=== PATIENT | female | born 1930 | race Caucasian/White ===

== ENCOUNTER 2018-08-12 08:41 | Inpatient (IN) | payer MEDICARE, OTHER ==
[2018-08-12] MEDS: ALBUTEROL 0.5% (NEB) 2.5 MG/0.5 ML AMP INH (08:55)
[2018-08-12] MEDS: IPRATROPIUM (NEB) 0.5 MG/2.5 ML AMP INH (08:56)
[2018-08-12 09:44] LABS: ADD MAN DIFF? NO
[2018-08-12] MEDS: CEFEPIME 2GM/50 ML (PMX) 50 ML IVPB (09:44)
[2018-08-12] MEDS: METHYLPREDNISOLONE 125 MG INJ IV ×3 (09:45→22:23)
[2018-08-12] MEDS: SODIUM CHLORIDE 0.9% 1L BAG IV* (09:45)
[2018-08-12] MEDS: VANCOMYCIN 1 GM (PMX) 250 ML IVPB (09:45)
[2018-08-12 09:48] LABS: WHITE BLOOD COUNT 15.8 10^3/ul (4.8-10.8)
[2018-08-12 09:48] LABS: BASOPHIL # 0.1 10^3/ul (0.0-0.1); BASOPHILS % 0.4 % (0.0-2.0); EOSINOPHILS % 0.1 % (0.0-7.0); HEMATOCRIT 42.3 % (37.0-47.0); HEMOGLOBIN 13.4 g/dl (12.0-16.0); LYMPHOCYTES # 2.1 10^3/ul (0.8-2.9); LYMPHOCYTES % 13.1 % (15.0-51.0); MEAN CORPUSCULAR HEMOGLOBIN 29.8 pg (29.0-33.0); MEAN CORPUSCULAR HGB CONC 31.7 g/dl (32.0-37.0); MEAN CORPUSCULAR VOLUME 94.2 fl (82.0-101.0); MEAN PLATELET VOLUME 11.4 fl (7.4-10.4); MONOCYTES % 6.1 % (0.0-11.0); NEUTROPHIL # 12.5 10^3/ul (1.6-7.5); NEUTROPHILS % 79.3 % (39.0-77.0); PLATELET COUNT 277 10^3/UL (140-415); RED BLOOD COUNT 4.49 10^6/ul (4.20-5.40); RED CELL DISTRIBUTION WIDTH 13.7 % (11.5-14.5)
[2018-08-12 10:06] LABS: ALANINE AMINOTRANSFERASE 21 IU/L (13-69); ALBUMIN 3.8 g/dl (3.3-4.9); ALBUMIN/GLOBULIN RATIO 0.95; ALKALINE PHOSPHATASE 139 IU/L (42-121); AMYLASE 36 U/L (11-123); ANION GAP 4 (5-13); ASPARTATE AMINO TRANSFERASE 30 IU/L (15-46); BILIRUBIN,INDIRECT 0.4 mg/dl (0-1.1); BILIRUBIN,TOTAL 0.4 mg/dl (0.2-1.3); BLOOD UREA NITROGEN 16 mg/dl (7-20); CALCIUM 10.2 mg/dl (8.4-10.2); CARBON DIOXIDE 35 mmol/L (21-31); CHLORIDE 101 mmol/L (97-110); CREATININE 0.83 mg/dl (0.44-1.00); GLUCOSE 152 mg/dl (70-220); LIPASE 12 U/L (23-300); POTASSIUM 4.1 mmol/L (3.5-5.1); SODIUM 140 mmol/L (135-144); TOTAL PROTEIN 7.8 g/dl (6.1-8.1)
[2018-08-12 10:07] LABS: INR 0.98; PROTIME 13.1 Sec (11.9-14.9)
[2018-08-12 10:16] LABS: PARTIAL THROMBOPLASTIN TIME 29.1 Sec (23.0-35.0)
[2018-08-12 10:17] LABS: TROPONIN-I 0.031 ng/ml (0.000-0.120)
[2018-08-12] MEDS ORDERED: ACETAMINOPHEN 325 MG TAB PO (11:30)
[2018-08-12] MEDS ORDERED: ONDANSETRON 4 MG INJ IV ×2 (11:30→12:30)
[2018-08-12 11:56] LABS: ADD UMIC YES; UR ASCORBIC ACID 40 mg/dL (NEGATIVE); UR BACTERIA FEW /HPF (NONE SEEN); UR BILIRUBIN (Dip) NEGATIVE (NEGATIVE); UR BLOOD (Dip) NEGATIVE (NEGATIVE); UR CLARITY CLOUDY (CLEAR); UR COLOR AMBER (YELLOW); UR GLUCOSE (Dip) NEGATIVE (NEGATIVE); UR GRANULAR CAST FEW /HPF (NONE SEEN); UR HYALINE CAST FEW /HPF (NONE SEEN); UR KETONES (Dip) NEGATIVE (NEGATIVE); UR LEUKOCYTE ESTERASE (Dip) TRACE Leu/ul (NEGATIVE); UR MUCUS MANY /HPF (NONE SEEN); UR NITRITE (Dip) POSITIVE (NEGATIVE); UR RBC 3 /HPF (0-5); UR SPECIFIC GRAVITY (Dip) 1.026 (1.003-1.030); UR SQUAMOUS EPITHELIAL CELL FEW /HPF (FEW); UR TOTAL PROTEIN (Dip) 2+ mg/dl (NEGATIVE); UR UROBILINOGEN (Dip) 1+ mg/dL (NEGATIVE); UR WBC 61 /HPF (0-5)
[2018-08-12] MEDS ORDERED: NACL 0.9% 3 ML SYG IV (12:30)
[2018-08-12] MEDS: SOD CHLORIDE 0.9% 1,000 ML IV (13:09)
[2018-08-12] MEDS ORDERED: VANCOMYCIN IV PER PHARMACY XX (14:00)
[2018-08-12 15:08] LABS: LACTIC ACID 2.5 mmol/L (0.5-2.0)
[2018-08-12 15:18] LABS: B-TYPE NATRIURETIC PEPTIDE 4900 PG/ML (0-450)
[2018-08-12 15:27] LABS: HEMOGLOBIN A1C 5.2 % (0-5.9)
[2018-08-12 15:39] LABS: THYROID STIMULATING HORMONE 0.769 MIU/L (0.465-4.680)
[2018-08-12] MEDS: VANCOMYCIN 500 MG (PMX) 100 ML IVPB (16:14)
[2018-08-12 16:15] LABS: FREE T4 (FREE THYROXINE) 2.01 ng/dl (0.85-1.93)
[2018-08-12] MEDS: PIPER-TAZO 3.375 GM IV (PMX) 100 ML IVPB (17:38)
[2018-08-12] MEDS: ALBUTEROL/IPRATROPIUM (NEB) 3 ML AMP HHN (20:42)
[2018-08-12] MEDS: HALOPERIDOL 5 MG INJ IM ×2 (20:43→21:46)
[2018-08-12] MEDS: LORAZEPAM 2 MG INJ IV (21:46)
[2018-08-13] MEDS: PIPER-TAZO 3.375 GM IV (PMX) 100 ML IVPB ×2 (00:10→05:47)
[2018-08-13 05:21] LABS: ADD MAN DIFF? NO
[2018-08-13 05:22] LABS: WHITE BLOOD COUNT 13.2 10^3/ul (4.8-10.8)
[2018-08-13 05:22] LABS: BASOPHILS % 0.2 % (0.0-2.0); HEMOGLOBIN 11.4 g/dl (12.0-16.0); LYMPHOCYTES # 1.7 10^3/ul (0.8-2.9); LYMPHOCYTES % 12.8 % (15.0-51.0); MEAN CORPUSCULAR HEMOGLOBIN 29.7 pg (29.0-33.0); MEAN CORPUSCULAR HGB CONC 30.8 g/dl (32.0-37.0); MEAN CORPUSCULAR VOLUME 96.4 fl (82.0-101.0); MEAN PLATELET VOLUME 12.7 fl (7.4-10.4); MONOCYTE # 0.4 10^3/ul (0.3-0.9); MONOCYTES % 3.2 % (0.0-11.0); NEUTROPHIL # 10.9 10^3/ul (1.6-7.5); NEUTROPHILS % 82.4 % (39.0-77.0); PLATELET COUNT 202 10^3/UL (140-415); RED BLOOD COUNT 3.84 10^6/ul (4.20-5.40); RED CELL DISTRIBUTION WIDTH 14.1 % (11.5-14.5)
[2018-08-13 05:47] LABS: LACTIC ACID 1.5 mmol/L (0.5-2.0)
[2018-08-13] MEDS: SOD CHLORIDE 0.9% 1,000 ML IV (05:47)
[2018-08-13] MEDS: PANTOPRAZOLE 40 MG INJ IV (05:47)
[2018-08-13] MEDS: METHYLPREDNISOLONE 125 MG INJ IV ×3 (05:47→21:14)
[2018-08-13] MEDS: LEVOTHYROXINE 125 MCG TAB PO (05:48)
[2018-08-13 05:56] LABS: ALANINE AMINOTRANSFERASE 24 IU/L (13-69); ALBUMIN 3.1 g/dl (3.3-4.9); ALKALINE PHOSPHATASE 97 IU/L (42-121); ANION GAP 6 (5-13); ASPARTATE AMINO TRANSFERASE 28 IU/L (15-46); BILIRUBIN,INDIRECT 0.2 mg/dl (0-1.1); BILIRUBIN,TOTAL 0.2 mg/dl (0.2-1.3); BLOOD UREA NITROGEN 17 mg/dl (7-20); CARBON DIOXIDE 31 mmol/L (21-31); CHLORIDE 108 mmol/L (97-110); GLUCOSE 138 mg/dl (70-220); POTASSIUM 4.6 mmol/L (3.5-5.1); SODIUM 145 mmol/L (135-144); TOTAL PROTEIN 6.2 g/dl (6.1-8.1)
[2018-08-13 07:19] LABS: PHOSPHORUS 4.6 mg/dl (2.5-4.9)
[2018-08-13 07:19] LABS: MAGNESIUM 2.3 mg/dl (1.7-2.5)
[2018-08-13] MEDS: hydrALAzine 20 MG INJ IV (07:59)
[2018-08-13] MEDS: ASPIRIN (EC) 81 MG TAB PO (09:00)
[2018-08-13] MEDS: MULTIVITAMINS THERAPEUTIC TAB PO (09:00)
[2018-08-13] MEDS: ENOXAPARIN 40 MG/0.4 ML SYG SC (09:00)
[2018-08-13] MEDS: LORATADINE 10 MG TAB PO (09:00)
[2018-08-13] MEDS: ALBUTEROL/IPRATROPIUM (NEB) 3 ML AMP HHN ×3 (09:08→21:20)
[2018-08-13] MEDS: CEFTRIAXONE 1 GM/50 ML (PMX) 50 ML IVPB (11:22)
[2018-08-13] MEDS: AZITHROMYCIN 500MG/NS (PMX) 250 ML IVPB (12:35)
[2018-08-13] MEDS: OLANZAPINE 2.5 MG TAB PO (13:20)
[2018-08-13] MEDS ORDERED: VANCOMYCIN HCL 1.25 GM in SOD CHLORIDE 0.9% 250 ML IVPB (15:00)
[2018-08-14] MEDS: HALOPERIDOL 5 MG INJ IM (01:55)
[2018-08-14] MEDS: LORAZEPAM 2 MG INJ IV (01:56)
[2018-08-14] MEDS: ALBUTEROL/IPRATROPIUM (NEB) 3 ML AMP HHN ×4 (03:58→20:53)
[2018-08-14] MEDS: PANTOPRAZOLE 40 MG INJ IV (05:53)
[2018-08-14] MEDS: METHYLPREDNISOLONE 125 MG INJ IV (05:54)
[2018-08-14] MEDS: LEVOTHYROXINE 88 MCG TAB PO (05:55)
[2018-08-14] MEDS: LORATADINE 10 MG TAB PO (09:35)
[2018-08-14] MEDS: ASPIRIN (EC) 81 MG TAB PO (09:35)
[2018-08-14] MEDS: OLANZAPINE 2.5 MG TAB PO (09:36)
[2018-08-14] MEDS: ENOXAPARIN 40 MG/0.4 ML SYG SC (09:36)
[2018-08-14] MEDS: MULTIVITAMINS THERAPEUTIC TAB PO (09:36)
[2018-08-14 10:19] LABS: ADD MAN DIFF? NO
[2018-08-14 10:22] LABS: BASOPHIL # 0.1 10^3/ul (0.0-0.1); BASOPHILS % 0.5 % (0.0-2.0); HEMATOCRIT 37.4 % (37.0-47.0); HEMOGLOBIN 11.6 g/dl (12.0-16.0); LYMPHOCYTES # 1.1 10^3/ul (0.8-2.9); LYMPHOCYTES % 8.3 % (15.0-51.0); MEAN CORPUSCULAR HEMOGLOBIN 29.5 pg (29.0-33.0); MEAN CORPUSCULAR VOLUME 95.2 fl (82.0-101.0); MEAN PLATELET VOLUME 12.4 fl (7.4-10.4); MONOCYTE # 0.4 10^3/ul (0.3-0.9); MONOCYTES % 3.3 % (0.0-11.0); NEUTROPHIL # 11.2 10^3/ul (1.6-7.5); NEUTROPHILS % 83.2 % (39.0-77.0); PLATELET COUNT 213 10^3/UL (140-415); RED BLOOD COUNT 3.93 10^6/ul (4.20-5.40); RED CELL DISTRIBUTION WIDTH 14.2 % (11.5-14.5)
[2018-08-14 10:22] LABS: WHITE BLOOD COUNT 13.5 10^3/ul (4.8-10.8)
[2018-08-14 10:42] LABS: ALANINE AMINOTRANSFERASE 28 IU/L (13-69); ALBUMIN 3.2 g/dl (3.3-4.9); ALBUMIN/GLOBULIN RATIO 0.96; ALKALINE PHOSPHATASE 91 IU/L (42-121); ANION GAP 4 (5-13); ASPARTATE AMINO TRANSFERASE 29 IU/L (15-46); BLOOD UREA NITROGEN 30 mg/dl (7-20); CARBON DIOXIDE 29 mmol/L (21-31); CHLORIDE 112 mmol/L (97-110); CREATININE 0.93 mg/dl (0.44-1.00); GLUCOSE 137 mg/dl (70-220); POTASSIUM 4.2 mmol/L (3.5-5.1); SODIUM 145 mmol/L (135-144); TOTAL PROTEIN 6.5 g/dl (6.1-8.1)
[2018-08-14 10:43] LABS: MAGNESIUM 2.4 mg/dl (1.7-2.5)
[2018-08-14] MEDS: CEFTRIAXONE 1 GM/50 ML (PMX) 50 ML IVPB (11:35)
[2018-08-14] MEDS: DEXTROSE 5%-0.45% NACL 1,000 ML IV (11:35)
[2018-08-14] MEDS: AZITHROMYCIN 250 MG TAB PO (16:50)
[2018-08-14] MEDS: BENZONATATE 100 MG CAP PO (17:17)
[2018-08-14] MEDS: DOCUSATE SODIUM 100 MG CAP PO (20:10)
[2018-08-14] MEDS: QUETIAPINE 25 MG TAB PO (20:10)
[2018-08-15] MEDS: ALBUTEROL/IPRATROPIUM (NEB) 3 ML AMP HHN ×4 (00:45→21:06)
[2018-08-15] MEDS: BENZONATATE 100 MG CAP PO ×3 (01:55→21:12)
[2018-08-15 05:52] LABS: ADD MAN DIFF? NO
[2018-08-15 05:58] LABS: BASOPHIL # 0.1 10^3/ul (0.0-0.1); BASOPHILS % 0.5 % (0.0-2.0); EOSINOPHILS # 0.1 10^3/ul (0.0-0.5); EOSINOPHILS % 0.4 % (0.0-7.0); HEMATOCRIT 38.4 % (37.0-47.0); HEMOGLOBIN 12.4 g/dl (12.0-16.0); LYMPHOCYTES # 3.1 10^3/ul (0.8-2.9); LYMPHOCYTES % 19.9 % (15.0-51.0); MEAN CORPUSCULAR HEMOGLOBIN 30.5 pg (29.0-33.0); MEAN CORPUSCULAR HGB CONC 32.3 g/dl (32.0-37.0); MEAN CORPUSCULAR VOLUME 94.6 fl (82.0-101.0); MEAN PLATELET VOLUME 12.4 fl (7.4-10.4); MONOCYTES % 6.5 % (0.0-11.0); NEUTROPHIL # 11.1 10^3/ul (1.6-7.5); PLATELET COUNT 233 10^3/UL (140-415); RED BLOOD COUNT 4.06 10^6/ul (4.20-5.40); RED CELL DISTRIBUTION WIDTH 14.6 % (11.5-14.5)
[2018-08-15 05:58] LABS: WHITE BLOOD COUNT 15.8 10^3/ul (4.8-10.8)
[2018-08-15] MEDS: LEVOTHYROXINE 88 MCG TAB PO (06:04)
[2018-08-15] MEDS: PANTOPRAZOLE (EC) 40 MG TAB PO (06:05)
[2018-08-15 06:29] LABS: ANION GAP 7 (5-13); BLOOD UREA NITROGEN 29 mg/dl (7-20); CARBON DIOXIDE 31 mmol/L (21-31); CHLORIDE 110 mmol/L (97-110); CREATININE 0.89 mg/dl (0.44-1.00); GLUCOSE 85 mg/dl (70-220); MAGNESIUM 2.5 mg/dl (1.7-2.5); POTASSIUM 3.9 mmol/L (3.5-5.1); SODIUM 148 mmol/L (135-144); TROPONIN-I 0.041 ng/ml (0.000-0.120)
[2018-08-15] MEDS: predniSONE 20 MG TAB PO (09:10)
[2018-08-15] MEDS: MULTIVITAMINS THERAPEUTIC TAB PO (09:10)
[2018-08-15] MEDS: LORATADINE 10 MG TAB PO (09:10)
[2018-08-15] MEDS: AZITHROMYCIN 250 MG TAB PO (09:10)
[2018-08-15] MEDS: ASPIRIN (EC) 81 MG TAB PO (09:10)
[2018-08-15] MEDS: OLANZAPINE 2.5 MG TAB PO (09:11)
[2018-08-15] MEDS: ENOXAPARIN 40 MG/0.4 ML SYG SC (09:12)
[2018-08-15] MEDS: CEFTRIAXONE 1 GM/50 ML (PMX) 50 ML IVPB (12:09)
[2018-08-15] MEDS: ACETYLCYSTEINE 20% 4 ML VIAL NEB ×2 (14:00→21:06)
[2018-08-15] MEDS: DOCUSATE SODIUM 100 MG CAP PO (21:12)
[2018-08-16] MEDS: ALBUTEROL/IPRATROPIUM (NEB) 3 ML AMP HHN ×4 (02:02→20:18)
[2018-08-16] MEDS: ACETYLCYSTEINE 20% 4 ML VIAL NEB ×4 (02:02→20:18)
[2018-08-16] MEDS: QUETIAPINE 25 MG TAB PO (02:14)
[2018-08-16 05:25] LABS: ADD MAN DIFF? NO
[2018-08-16 05:33] LABS: BASOPHIL # 0.1 10^3/ul (0.0-0.1); BASOPHILS % 0.6 % (0.0-2.0); EOSINOPHILS # 0.2 10^3/ul (0.0-0.5); EOSINOPHILS % 1.5 % (0.0-7.0); HEMATOCRIT 41.5 % (37.0-47.0); HEMOGLOBIN 13.3 g/dl (12.0-16.0); LYMPHOCYTES # 3.7 10^3/ul (0.8-2.9); LYMPHOCYTES % 25.5 % (15.0-51.0); MEAN CORPUSCULAR HEMOGLOBIN 29.6 pg (29.0-33.0); MEAN CORPUSCULAR VOLUME 92.2 fl (82.0-101.0); MEAN PLATELET VOLUME 11.8 fl (7.4-10.4); MONOCYTE # 0.7 10^3/ul (0.3-0.9); MONOCYTES % 5.1 % (0.0-11.0); NEUTROPHIL # 9.3 10^3/ul (1.6-7.5); NEUTROPHILS % 64.5 % (39.0-77.0); PLATELET COUNT 229 10^3/UL (140-415); RED CELL DISTRIBUTION WIDTH 14.3 % (11.5-14.5)
[2018-08-16 05:33] LABS: WHITE BLOOD COUNT 14.3 10^3/ul (4.8-10.8)
[2018-08-16] MEDS: PANTOPRAZOLE (EC) 40 MG TAB PO (05:34)
[2018-08-16] MEDS: LEVOTHYROXINE 88 MCG TAB PO (05:34)
[2018-08-16 06:17] LABS: ANION GAP 8 (5-13); BLOOD UREA NITROGEN 20 mg/dl (7-20); CALCIUM 9.6 mg/dl (8.4-10.2); CARBON DIOXIDE 33 mmol/L (21-31); CHLORIDE 104 mmol/L (97-110); GLUCOSE 90 mg/dl (70-220); MAGNESIUM 2.2 mg/dl (1.7-2.5); PHOSPHORUS 1.9 mg/dl (2.5-4.9); POTASSIUM 3.6 mmol/L (3.5-5.1); SODIUM 145 mmol/L (135-144)
[2018-08-16] MEDS: LORATADINE 10 MG TAB PO (09:30)
[2018-08-16] MEDS: AZITHROMYCIN 250 MG TAB PO (09:30)
[2018-08-16] MEDS: MULTIVITAMINS THERAPEUTIC TAB PO (09:30)
[2018-08-16] MEDS: predniSONE 20 MG TAB PO (09:30)
[2018-08-16] MEDS: ASPIRIN (EC) 81 MG TAB PO (09:30)
[2018-08-16] MEDS: OLANZAPINE 2.5 MG TAB PO (09:31)
[2018-08-16] MEDS: ENOXAPARIN 40 MG/0.4 ML SYG SC (09:32)
[2018-08-16] MEDS: CEFTRIAXONE 1 GM/50 ML (PMX) 50 ML IVPB (11:10)
[2018-08-16] MEDS: BENZONATATE 100 MG CAP PO (20:38)
[2018-08-16] MEDS: DOCUSATE SODIUM 100 MG CAP PO (20:38)
[2018-08-17] MEDS: ALBUTEROL/IPRATROPIUM (NEB) 3 ML AMP HHN ×4 (00:54→23:49)
[2018-08-17] MEDS: ACETYLCYSTEINE 20% 4 ML VIAL NEB ×4 (01:05→23:49)
[2018-08-17] MEDS: LEVOTHYROXINE 88 MCG TAB PO (05:53)
[2018-08-17] MEDS: PANTOPRAZOLE (EC) 40 MG TAB PO (05:53)
[2018-08-17] MEDS: LORATADINE 10 MG TAB PO (08:11)
[2018-08-17] MEDS: OLANZAPINE 2.5 MG TAB PO (08:11)
[2018-08-17] MEDS: MULTIVITAMINS THERAPEUTIC TAB PO (08:11)
[2018-08-17] MEDS: ENOXAPARIN 40 MG/0.4 ML SYG SC (08:12)
[2018-08-17] MEDS: DOCUSATE SODIUM 100 MG CAP PO (19:47)
[2018-08-17] MEDS: QUETIAPINE 25 MG TAB PO (19:48)
[2018-08-17] MEDS ORDERED: LORAZEPAM 2 MG INJ (20:17)
[2018-08-17] MEDS: LORAZEPAM 2 MG INJ IV (20:25)
[2018-08-18] MEDS: LEVOTHYROXINE 88 MCG TAB PO (06:05)
[2018-08-18] MEDS: PANTOPRAZOLE (EC) 40 MG TAB PO (06:05)
[2018-08-18] MEDS: ALBUTEROL/IPRATROPIUM (NEB) 3 ML AMP HHN ×2 (08:34→15:28)
[2018-08-18] MEDS: ACETYLCYSTEINE 20% 4 ML VIAL NEB ×2 (08:34→15:28)
[2018-08-18] MEDS: OLANZAPINE 2.5 MG TAB PO ×3 (09:31→21:25)
[2018-08-18] MEDS: LORATADINE 10 MG TAB PO (09:31)
[2018-08-18] MEDS: MULTIVITAMINS THERAPEUTIC TAB PO (09:31)
[2018-08-18] MEDS: ENOXAPARIN 40 MG/0.4 ML SYG SC (09:35)
[2018-08-18] MEDS: AZITHROMYCIN 250 MG TAB PO (12:06)
[2018-08-18] MEDS: DOCUSATE SODIUM 100 MG CAP PO (21:24)
[2018-08-19] MEDS: QUETIAPINE 25 MG TAB PO (00:09)
[2018-08-19] MEDS: ALBUTEROL/IPRATROPIUM (NEB) 3 ML AMP HHN (01:30)
[2018-08-19] MEDS: ACETYLCYSTEINE 20% 4 ML VIAL NEB ×2 (01:30→08:00)
[2018-08-19] MEDS: PANTOPRAZOLE (EC) 40 MG TAB PO (05:46)
[2018-08-19] MEDS: LEVOTHYROXINE 88 MCG TAB PO (05:46)
[2018-08-19 07:01] LABS: ADD MAN DIFF? NO
[2018-08-19 07:09] LABS: WHITE BLOOD COUNT 13.4 10^3/ul (4.8-10.8)
[2018-08-19 07:09] LABS: BASOPHIL # 0.1 10^3/ul (0.0-0.1); BASOPHILS % 0.7 % (0.0-2.0); EOSINOPHILS # 0.5 10^3/ul (0.0-0.5); EOSINOPHILS % 3.8 % (0.0-7.0); HEMOGLOBIN 14.7 g/dl (12.0-16.0); LYMPHOCYTES # 2.7 10^3/ul (0.8-2.9); LYMPHOCYTES % 20.1 % (15.0-51.0); MEAN CORPUSCULAR HEMOGLOBIN 29.6 pg (29.0-33.0); MEAN CORPUSCULAR VOLUME 92.7 fl (82.0-101.0); MEAN PLATELET VOLUME 11.4 fl (7.4-10.4); MONOCYTE # 0.8 10^3/ul (0.3-0.9); NEUTROPHIL # 9.1 10^3/ul (1.6-7.5); NEUTROPHILS % 67.9 % (39.0-77.0); PLATELET COUNT 243 10^3/UL (140-415); RED BLOOD COUNT 4.96 10^6/ul (4.20-5.40); RED CELL DISTRIBUTION WIDTH 14.7 % (11.5-14.5)
[2018-08-19 07:30] LABS: ANION GAP 4 (5-13); BLOOD UREA NITROGEN 15 mg/dl (7-20); CALCIUM 9.5 mg/dl (8.4-10.2); CARBON DIOXIDE 33 mmol/L (21-31); CHLORIDE 102 mmol/L (97-110); CREATININE 0.87 mg/dl (0.44-1.00); GLUCOSE 105 mg/dl (70-220); POTASSIUM 3.9 mmol/L (3.5-5.1); SODIUM 139 mmol/L (135-144)
[2018-08-19] MEDS: OLANZAPINE 2.5 MG TAB PO (08:42)
[2018-08-19] MEDS: MULTIVITAMINS THERAPEUTIC TAB PO (08:42)
[2018-08-19] MEDS: LORATADINE 10 MG TAB PO (08:42)
[2018-08-19] MEDS: AZITHROMYCIN 250 MG TAB PO (08:42)
[2018-08-19] MEDS: ENOXAPARIN 40 MG/0.4 ML SYG SC (08:45)
== END 2018-08-19 19:20 | DRG 871 ==
LOC: E/R 08:41 → 2NE 11:21
DX: A41.9 Sepsis, unspecified organism (principal); J96.01 Acute respiratory failure with hypoxia; J18.9 Pneumonia, unspecified organism; N39.0 Urinary tract infection, site not specified; J44.0 Chronic obstructive pulmonary disease with (acute) lower respiratory infection; I10 Essential (primary) hypertension; E03.9 Hypothyroidism, unspecified; Z66 Do not resuscitate; F03.90 Unspecified dementia, unspecified severity, without behavioral disturbance, psychotic disturbance, mood disturbance, and anxiety; E11.9 Type 2 diabetes mellitus without complications; J40 Bronchitis, not specified as acute or chronic; R13.10 Dysphagia, unspecified; R62.7 Adult failure to thrive; B34.9 Viral infection, unspecified; Z79.82 Long term (current) use of aspirin; Z90.12 Acquired absence of left breast and nipple; Z86.73 Personal history of transient ischemic attack (TIA), and cerebral infarction without residual deficits; Z88.2 Allergy status to sulfonamides; Z87.891 Personal history of nicotine dependence
CPT/HCPCS: 36415; 71045; 80048; 80053; 81001; 82150; 83036; 83605; 83690; 83735; 83880; 84100; 84439; 84443; 84484; 85025; 85610; 85730; 87040; 87081; 87086; 87400; 92526; 92610; 93005; 94640; 94644; 94664; 96365; 96366; 96375; 97110; 97161; 97530; 99291-25